=== PATIENT | female | born 1935 | race Caucasian/White ===

== ENCOUNTER 2017-02-13 13:14 | Inpatient (IN) ==
[2017-02-13] MEDS ORDERED: Ondansetron 4 MG/2 ML VIAL IVP ONE (14:03)
[2017-02-13] MEDS ORDERED: *HR* Morphine 2 MG/ML SYRINGE IVP ONE (14:03)
[2017-02-13] MEDS ORDERED: Methylnaltrexone 12 MG/0.6 ML SYRINGE SQ ONE (14:07)
--- NOTE | 2017-02-13 14:07 | Emergency Department Note ---
Disposition Clinical Impression: Inability to ambulate due to hip Anemia Qualifiers: Anemia type: unspecified type Qualified Code(s): D64.9 - Anemia, unspecified Hip fracture Qualifiers: Encounter type: subsequent encounter Fracture type: closed Laterality: right Fracture healing: with routine healing Qualified Code(s): S72.001D - Fracture of unspecified part of neck of right femur, subsequent encounter for closed fracture with routine healing Disposition: Admitted As Inpatient Condition: Good Time of Disposition: 15:08 General Adult HPI - General Chief complaint: ED Extremity Injury, Lower Stated complaint: HIP/KNEE PAIN Time Seen by Provider: 02/13/17 13:42 Source: patient Mode of arrival: wheelchair Limitations: no limitations Nursing Notes Reviewed: Yes Vital Signs Reviewed: Yes - History of Present Illness HPI Narrative: 81-year-old female presenting to the emergency Department chief complaint of intractable pain and inability to ambulate. Patient was seen at this hospital yesterday and diagnosed with a greater trochanter fracture on the right side. This is a nonsurgical fracture at this time. Orthopedics has RD then consulted on this case. Patient states she has been home using the Vicodin as prescribed but is in so much pain she is unable to walk to the bathroom or perform her daily activities of life. Family is at bedside and states she has had difficulty ambulating and they are staying with her at this time but are unable to care for her 22/11. Pain Scale: 10 - Related Data Home Medications Medication Instructions Recorded Confirmed Aspirin [Lo-Dose Aspirin EC] 81 mg PO DAILY 02/13/17 02/13/17 Brimonidine Tartrate/Timolol 1 drop BOTH EYES BID 02/13/17 02/13/17 [Combigan 0.2%-0.5% Eye Drops] Cyclosporine [Restasis] 1 drop BOTH EYES BID 02/13/17 02/13/17 Insulin Glargine,Hum.rec.anlog 21 unit SQ HS 02/13/17 02/13/17 [Lantus Solostar] Insulin LISPRO [Humalog] 4 unit SQ TIDWM 02/13/17 02/13/17 predniSONE [PredniSONE] 20 mg PO DAILY 02/13/17 02/13/17 Previous Rx's Medication Instructions Recorded HYDROcodone/Acet 5/325 mg [[place] 1 tab PO Q6H PRN #12 tab 02/12/17 5-325 mg] Allergies Allergy/AdvReac Type Severity Reaction Status Date / Time Sulfa (Sulfonamide AdvReac Gastrointestinal Verified 02/12/17 10:47 Antibiotics) Upset All systems ED: reviewed and negative except as stated. Constitutional: Denies: fever, chills Eyes: Reports: as per HPI ENT ED: Reports: as per HPI Cardiovascular: Denies: chest pain, palpitations Respiratory: Denies: cough, dyspnea, wheezes Gastrointestinal: Reports: constipation. Denies: abdominal pain, nausea, vomiting Genitourinary: Reports: as per HPI Musculoskeletal: Reports: other (Right hip pain radiating down to her knee) Integumentary: Reports: as per HPI Neurological: Reports: as per HPI Psychiatric: Reports: as per HPI Endocrine: Reports: as per HPI Hematological/Lymphatic: Reports: as per HPI Allergic/Immunologic: Reports: as per HPI Past Medical History - Past Medical History Attestation: Yes The following information was validated with the patient. Medical history: Reports: diabetes, hyperlipidemia, hypertension Psychiatric history: Reports: anxiety, depression - Social History Smoking Status: Never smoker Smokeless Tobacco Status: No Alcohol use: Reports: none Drug use: Reports: none Physical Exam - General Limitations: no limitations General appearance: alert, in distress (Patient uncomfortable on the bed) - Head Head exam: atraumatic, normocephalic, normal inspection - Eye Eye exam: Present: normal appearance - Chest Chest inspection: Present: normal inspection, symmetric chest wall rise. Absent : tenderness - Respiratory Respiratory exam: Present: normal lung sounds bilaterally. Absent: respiratory distress, wheezes - Cardiovascular Cardiovascular exam: Present: regular rate, normal rhythm, normal heart sounds - Abdominal Exam Abdominal exam: Present: soft, Non-Tender. Absent: distention, guarding, rebound - Extremities Exam Extremities exam: Present: other (Sensation intact bilateral lower extremities, distal pulses 2+ in bilateral lower extremities. Muscle strength is decreased due to pain on the right lower extremity compared to the left. Pain on palpation on the left outer hip area down to the knee. Pain on palpation of bilateral anterior tibial region) - Neurological Exam Neurological exam: Present: alert - Psychiatric Psychiatric exam: Present: normal affect, normal mood - Skin Skin exam: Present: warm, intact Course Course Narrative: 81-year-old female presenting to the emergency department with chief complaint inability to ambulate and intractable pain. We will plan to admit the patient at this time. We will call orthopedic surgery to determine who we should admit to either hospitalist and orthopedic surgery. We will provide pain management here in the emergency department and obtain basic lab work including CBC and BMP along with a urinalysis. - Reevaluation(s) Reevaluation #1: Spoke with Dr. boswell in the patient's known orthopedic surgeon. He agrees to see the patient while she stays in the hospital. We will now call hospitalist to get her admitted. Time: 14:07 Reevaluation #2: Spoke with the hospitalist team at [facility] who agrees to accept the patient. Patient became mildly under control at this time. We will provide her with 0.5 of Dilaudid. Vital signs are stable at this time. family still at bedside. Time: 15:07 Vital Signs Temperature 98.2 F 02/13/17 13:27 Pulse Rate 74 02/13/17 13:27 Respiratory Rate 24 02/13/17 13:27 Blood Pressure 151/34 02/13/17 13:27 O2 Sat by Pulse Oximetry 96 02/13/17 13:27 Temperature 98.2 F 02/13/17 13:27 Pulse Rate 74 02/13/17 13:27 Respiratory Rate 24 02/13/17 13:27 Blood Pressure 151/34 02/13/17 13:27 O2 Sat by Pulse Oximetry 96 02/13/17 13:27 Oxygen Delivery Oxygen Delivery Room Air Medical Decision Making - Medical Records Medical records reviewed: Yes I reviewed the patient's medical records. - Lab Data Lab results reviewed: Yes I reviewed the patient's lab results. Result diagrams: 02/13/17 14:18 02/13/17 14:18 Lab Results 02/13/17 02/13/17 02/13/17 Range/Units 14:18 14:18 14:50 WBC 11.3 H (4.3-11.1) K/mcL RBC 3.73 L (3.82-4.97) M/mcL Hgb 11.4 L (11.5-15.4) g/dL Hct 33.1 L (35.3-44.9) % MCV 88.7 (83.0-100.0) fL MCH 30.6 (28.0-33.3) pg MCHC 34.4 (31.6-35.5) g/dL RDW 12.0 (11.5-14.5) % Plt Count 258 (140-400) K/mcL MPV 10.4 (9.4-12.4) fL Immature Gran % 0.4 (0-4) % Seg Neutrophils % 60.0 % Lymphocytes % 22.1 % Monocytes % 16.5 % Eosinophils % 0.9 % Basophils % 0.1 % Neutrophils # 6.7 (1.6-8.9) K/mcL Lymphocytes # 2.5 (0.6-4.6) K/mcL Monocytes # 1.9 H (0.0-1.3) K/mcL Eosinophils # 0.1 (0.0-0.6) K/mcL Basophils # 0.0 (0.0-0.2) K/mcL Immature Plt Fraction 5.3 (1.1-6.1) % Sodium 133 L (136-145) mEq/L Potassium 3.9 (3.5-4.5) mEq/L Chloride 98 (98-109) mEq/L Carbon Dioxide 27 (19-29) mEq/L BUN 19 (7-20) mg/dL Creatinine 1.03 (0.57-1.11) mg/dL Est GFR ( Amer) > 60 (> 60) Est GFR (Non-Af Amer) 52 L (> 60) BUN/Creatinine Ratio 18 (6-26) Glucose 329 H (70-99) mg/dL Calculated Osmolality 291 (280-300) Calcium 9.2 (8.6-10.8) mg/dL Urine Color Yellow (Yellow) Urine Clarity Clear (Clear) Urine pH 6.0 (5.0-8.0) pH Units Ur Specific [place] 1.018 (1.010-1.025) Urine Protein Trace (Neg-Trace) mg/dL Urine Glucose (UA) >=1000 H (Normal) mg/dL Urine Ketones Negative (Negative) mg/dL Urine Blood Negative (Negative) Urine Nitrite Negative (Negative) Urine Bilirubin Negative (Negative) Urine Urobilinogen Normal (Normal) mg/dL Ur Leukocyte Esterase Negative (Negative) Urine Microscopic RBC 0-3 (0-3) per hpf Urine Microscopic WBC 0-3 (0-3) per hpf Ur Squamous Epith Cells Few (None-Few) per lpf Ur Culture Indicated? NO (NO) - Radiology Data Radiology results reviewed: Yes I reviewed the patient's radiology results. Attestation Statement - Attestation Attestation: I examined this patient and my medical decision-making was reviewed with the Resident Physician, Dr. Gamez. I agree with the documented findings, disposition and treatment plan as described except to the extent set forth below. Patient is a 81-year-old white female who returns to the emergency department after evaluation yesterday for right greater trochanter fracture that was deemed nonsurgical following orthopedic consult in the ED. Patient is status post right hip arthroplasty and sustained a small fracture line in her reader rate choke on the right that was identified on CT scan not apparent on plain films. He was recommended by Dr. Gooden orthopedic surgeon that the patient be discharged home and ambulation as tolerated secondary to pain and managed on narcotic pain medicine. Patient was prescribed [place] for home which she states is not managing her pain. Patient arrives quite uncomfortable and states that she is unable to ambulate with her walker at home and is unable to care for herself or perform her activities of daily living. Family members have been staying 24 7 assisting her with care. Patient denies any falls since her prior ED evaluation. No nausea or vomiting or trouble tolerating the medication. Patient here with intractable right hip pain. I agree with patient's physical exam findings as documented. Vital signs are stable. He has no new issues today has not fallen no history of trauma since her prior evaluation in the ED. Family brought her here primarily for intractable right hip pain and difficulty managing at home. We will go ahead and start an IV and provide IV pain medication for pain management as well as baseline labs and urinalysis. We did contact Dr. Marcus and discuss the patient's requiring admission for her intractable pain and inability to ambulate and he will consult on the patient and see her tomorrow. He was consulate from the emergency department. Following patient's baseline lab evaluation case was discussed with hospitalist who accepted the patient for admission for ongoing management as well as social worker consult for possible temporary ECF placement.
[2017-02-13 14:24] LABS: Basophils % 0.1 %; Eosinophils # 0.1 K/mcL (0.0-0.6); Eosinophils % 0.9 %; Hematocrit 33.1 % (35.3-44.9); Hemoglobin 11.4 g/dL (11.5-15.4); Immature Granulocytes % 0.4 % (0-4); Immature Platelets 5.3 % (1.1-6.1); Lymphocytes # 2.5 K/mcL (0.6-4.6); Lymphocytes % 22.1 %; Mean Corpuscular HGB Conc 34.4 g/dL (31.6-35.5); Mean Corpuscular Hemoglobin 30.6 pg (28.0-33.3); Mean Corpuscular Volume 88.7 fL (83.0-100.0); Mean Platelet Volume 10.4 fL (9.4-12.4); Monocytes # 1.9 K/mcL (0.0-1.3); Monocytes % 16.5 %; Neutrophils # 6.7 K/mcL (1.6-8.9); Platelet Count 258 K/mcL (140-400); Red Blood Count 3.73 M/mcL (3.82-4.97)
[2017-02-13 14:36] LABS: BUN/Creatinine Ratio 18 (6-26); Blood Urea Nitrogen 19 mg/dL (7-20); Calcium 9.2 mg/dL (8.6-10.8); Carbon Dioxide 27 mEq/L (19-29); Chloride 98 mEq/L (98-109); Glucose 329 mg/dL (70-99); Osmolality,Calculated 291 (280-300); Potassium 3.9 mEq/L (3.5-4.5); Sodium 133 mEq/L (136-145); eGFR For African Americans > 60 (> 60); eGFR For Non-African Americans 52 (> 60)
[2017-02-13] MEDS ORDERED: *HR* HYDROmorphone (PF) 1 MG/ML SYRINGE IVP ONE (14:52)
[2017-02-13 15:10] LABS: Bilirubin,Urine Negative (Negative); Blood,Urine Negative (Negative); Clarity,Urine Clear (Clear); Color,Urine Yellow (Yellow); Glucose,Urine (UA) >=1000 mg/dL (Normal); Ketones,Urine Negative (Negative); Leukocyte Esterase,Urine Negative (Negative); Nitrite,Urine Negative (Negative); Protein,Urine Trace mg/dL (Neg-Trace); Specific Gravity,Urine 1.018 (1.010-1.025); Urobilinogen,Urine Normal (Normal)
[2017-02-13 15:14] LABS: RBC,Urine 0-3 per hpf (0-3); WBC,Urine 0-3 per hpf (0-3)
[2017-02-13 15:15] LABS: Squamous Epithelial Cell,Urine Few per lpf (None-Few)
[2017-02-13] MEDS ORDERED: Ondansetron 4 MG/2 ML VIAL IVP PRN (15:54)
[2017-02-13] MEDS ORDERED: Naloxone 0.4 MG/ML INJ IVP PRN (15:54)
[2017-02-13] MEDS ORDERED: *HR* Morphine 2 MG/ML SYRINGE IVP PRN (15:59)
[2017-02-13] MEDS ORDERED: Acetaminophen 325 MG TABLET PO PRN (15:59)
[2017-02-13] MEDS ORDERED: *HR* Dextrose 50 % in Water (Syg) 50 ML SYRINGE IVP PRN (16:02)
[2017-02-13] MEDS ORDERED: D5% in Water 1,000 ML IVC PRN (16:02)
[2017-02-13] MEDS ORDERED: Dextrose Gel 15 GM PO PRN ×2 (16:02)
--- NOTE | 2017-02-13 17:21 | Internal Med History&Physical ---
<Tonia Kaur - Last Filed: 02/13/17 19:25> Date of Encounter: 02/13/17 Time of Encounter: 16:54 Assessment and Plan (1) Intractable pain Current visit: Yes Status: Acute Patient has right greater trochanter fracture nonsurgical-unable to complete ADLs or ambulate. We will continue with Vicodin as well as morphine as needed for breakthrough pain. We will add lidocaine patch Due to the use of narcotics patient's high risk for respiratory failure - continuous SPO2 monitoring (2) Fracture of greater trochanter of right femur Current visit: Yes Status: Acute 1 she was seen yesterday in the ER for right hip pain CT of pelvis right sided nondisplaced greater trochanter [id number] has had previous arthroplasty to the right hip. Dr. Marcus has been consulted and will see patient 2 we will consult PT and OT 3 continue with pain management-Vicodin as well as morphine increase as needed Qualifiers: Encounter type: initial encounter Fracture type: closed Fracture alignment: nondisplaced Qualified Code(s): S72.114A - Nondisplaced fracture of greater trochanter of right femur, initial encounter for closed fracture (3) Hypertension Current visit: No Status: Acute Patient states she has not officially been diagnosed with hypertension and solitary any medications. Suspect this is related to pain. We will continue with pain management Qualifiers: Hypertension type: unspecified Qualified Code(s): I10 - Essential (primary ) hypertension (4) DVT prophylaxis Current visit: Yes Status: Acute Lovenox subcutaneous (5) Diabetes mellitus Current visit: No Status: Chronic 1 Accu-Cheks before meals at bedtime + scale insulin as well as basal Diabetic diet Qualifiers: Diabetes mellitus type: type 2 Diabetes mellitus complication status: without complication Diabetes mellitus bed bug exterminator insulin use: with bed bug exterminator use Qualified Code(s): E11.9 - Type 2 diabetes mellitus without complications ; Z79.4 - longterm (current) use of insulin; Z79.4 - longterm (current) use of insulin; Z79.4 - longterm (current) use of insulin; Z79.4 - longterm ( current) use of insulin Internal Medicine - H&P: HPI Chief complaint: r hip pain Admitted From: Emergency Dept Plans for Post Hospital Care: Home History of present illness: Ms. Muniz is a 81 year old female past medical history of diabetes hyperlipidemia hypertension. Patient was seen at hospital yesterday and was diagnosed with a right greater trochanter fracture, nonsurgical at this time. She has been at home using Vicodin as prescribed however this was not controlling her pain and she has been unable to ambulate and perform daily ADLs or go to the bathroom, despite family providing 24-hour care as well. She presented to the ER with intractable pain. ER did speak with Dr. Marcus who will see patient on consult. Lab work is unremarkable she is hemodynamically stable and has been admitted for further workup and evaluation. Past Med Surg Social Fam HX - Past Medical History Medical history: diabetes, hyperlipidemia, hypertension Psychiatric history: anxiety, depression - Social History Smoking Status: Never smoker Smokeless Tobacco Status: No Alcohol use: none Drug use: none - Family History Mother Living Status: Hx Family Endocrine Disorder: Yes (DM ) Father Adopted: [place]: [place] Family Member Ethnicity: Non- Living Status: Age at : 70 Cause of : emphysema Hx Family Cardiac Disorders: No Hx Family Respiratory Disorders: Yes (emphysema) Hx Family Cancer: No Hx Family GI Disorders: No Hx Family Genitourinary Disorders: No Hx Family Endocrine Disorder: No Hx Family Musculoskeletal Disorders: No Hx Family Neuromuscular Disorders: No Hx Family Neurologic Disorders: No Hx Family HEENT Disorders: No Hx Family Autoimmune Disorders: No Hx Family Reproductive Disorders: No Hx Family Psychosocial Disorders: No Hx Family Medical Disorders: No Internal Medicine - H&P: Meds HYDROcodone/Acet 5/325 mg [[place] 5-325 mg] 1 tab PO Q6H PRN #12 tab 02/12/17 [Rx ] Aspirin [Lo-Dose Aspirin EC] 81 mg PO DAILY 02/13/17 [History] Brimonidine Tartrate/Timolol [Combigan 0.2%-0.5% Eye Drops] 1 drop BOTH EYES BID 02/13/17 [History] Cyclosporine [Restasis] 1 drop BOTH EYES BID 02/13/17 [History] Insulin Glargine,Hum.rec.anlog [Lantus Solostar] 21 unit SQ HS 02/13/17 [History ] Insulin LISPRO [Humalog] 4 unit SQ TIDWM 02/13/17 [History] predniSONE [PredniSONE] 20 mg PO DAILY 02/13/17 [History] 3 Allergy/AdvReac Type Severity Reaction Status Date / Time Sulfa (Sulfonamide AdvReac Gastrointestinal Verified 02/12/17 10:47 Antibiotics) Upset All Systems PM: A 10-system review of systems was performed and is negative for pertinent findings except as documented above in the HPI. - Constitutional Constitutional: weakness, no chills, no fever(s), no night sweats - EENT Eyes: no change in vision, no discharge, no pain, no photophobia Nose, mouth and throat: no dysphagia, no nasal discharge, no neck pain, no sore throat - Cardiovascular Cardiovascular ROS IM: no chest pain, no diaphoresis, no dyspnea, no lightheadedness, no palpitations, no syncope - Respiratory Respiratory: no cough, no dyspnea, no wheezing, no excessive phlegm production - Gastrointestinal Gastrointestinal: no abdominal pain, no diarrhea, no hematemesis, no hematochezia, no melena, no nausea, no vomiting - Genitourinary Genitourinary: no change in urinary stream, no dysuria, no flank pain, no hematuria - Musculoskeletal Musculoskeletal ROS IM: limited range of motion, other Additional comments: R hip pain - Integumentary Integumentary IM: no rash, no unusual bruising - Neurological Neurological ROS: no confusion, no convulsions, no focal weakness, no numbness, no tingling, no tremor(s) - Hematologic/Lymphatic Hematologic/Lymphatic: no easy bruising - Constitutional Vitals: Temp Pulse Resp BP Pulse Ox 98.1 F 74 19 194/79 97 02/13/17 16:39 02/13/17 16:39 02/13/17 16:39 02/13/17 16:39 02/13/17 16:39 General appearance: Present: A&O X 3, answers questions appropriately - Head Head exam: Present: atraumatic, normocephalic - Eye Eye exam: Present: PERRL, conjuntiva pink, sclera anicteric Pupils: Present: PERRL - Neck Neck exam general surgery: Present: supple, trachea midline. Absent: lymphadenopathy - Respiratory Respiratory exam: Present: CTAB. Absent: accessory muscle use, rales, rhonchi, wheezes - Cardiovascular Cardiovascular exam: Present: RRR, +S1, +S2. Absent: diastolic murmur, gallop, rubs, systolic murmur - GI/Abdominal GI/Abdominal exam: Present: normal bowel sounds, soft, no peritoneal signs. Absent: distended, tenderness - Extremities Exam Extremities exam: Present: warm, radial pulses palpable and symmetrical. Absent : calf tenderness, cyanotic, pedal edema - Neurological Exam Neurological exam: Present: CN II-XII intact, oriented X3, no focal deficits. Absent: pronater drift, facial droop, speech deficit Additional comments: head tremor - Skin Skin exam: Present: dry, intact Internal Med - H&P Results - Labs CBC & Chem 7: 02/13/17 14:18 02/13/17 14:18 <Hossein Escobar - Last Filed: 02/14/17 01:20> Date of Encounter: 02/13/17 Internal Medicine - H&P: HPI History of present illness: Ms. Muniz is a 81 year old female All Systems PM: A 10-system review of systems was performed and is negative for pertinent findings except as documented above in the HPI. - Constitutional Vitals: Temp Pulse Resp BP Pulse Ox 98.5 F 73 17 146/68 97 02/13/17 23:23 02/13/17 23:23 02/13/17 23:23 02/13/17 23:23 02/13/17 23:23 Internal Med - H&P Results - Labs CBC & Chem 7: 02/13/17 14:18 02/13/17 14:18 - Attending Attestation I have seen and examined the patient personally and discussed the plan with LICENSING WORKER and agree with the findings. Patient fell backwards after losing her balance and sustained right hip pain for which she seek medical attention locally and was told to take steroids and some muscle relaxant. As she was unable to bear weight and family brought her back to the ER where CT pelvis showed right greater trochanter fracture with mildly displaced segment. ER consulted orthopedic who has recommended conservative management. We have consulted orthopedics to see the patient and will keep the patient in hospital for pain management. The daily can be arranged. She might need chcf.
[2017-02-13] MEDS: Insulin LISPRO 300 UNITS/3 ML VIAL SQ SCH ×2 (17:50→22:29)
[2017-02-13] MEDS: *HR* HYDROcodone/Acet 5/325 mg TABLET PO PRN (17:58)
[2017-02-13] MEDS: RESTASIS OP SCH (22:29)
[2017-02-13] MEDS: Insulin DETEMIR 100 UNIT/ML X5UNITS SQ SCH (22:29)
[2017-02-13] MEDS: COMBIGAN OP SCH (22:29)
[2017-02-13] MEDS: *HR* HYDROmorphone (PF) 1 MG/ML SYRINGE IVP PRN (22:30)
[2017-02-14] MEDS: *HR* HYDROcodone/Acet 5/325 mg TABLET PO PRN ×4 (01:31→22:57)
[2017-02-14 01:32] LABS: Basophils % 0.2 %; Eosinophils # 0.2 K/mcL (0.0-0.6); Eosinophils % 1.6 %; Hematocrit 34.9 % (35.3-44.9); Hemoglobin 11.6 g/dL (11.5-15.4); Immature Granulocytes % 0.2 % (0-4); Lymphocytes # 4.1 K/mcL (0.6-4.6); Lymphocytes % 33.7 %; Mean Corpuscular HGB Conc 33.2 g/dL (31.6-35.5); Mean Corpuscular Volume 90.2 fL (83.0-100.0); Mean Platelet Volume 10.5 fL (9.4-12.4); Monocytes # 1.9 K/mcL (0.0-1.3); Monocytes % 15.9 %; Neutrophils # 5.8 K/mcL (1.6-8.9); Platelet Count 242 K/mcL (140-400); Red Blood Count 3.87 M/mcL (3.82-4.97); Red Cell Distribution Width 12.3 % (11.5-14.5); Segmented Neutrophils % 48.4 %
[2017-02-14 01:39] LABS: BUN/Creatinine Ratio 16 (6-26); Blood Urea Nitrogen 16 mg/dL (7-20); Calcium 9.2 mg/dL (8.6-10.8); Carbon Dioxide 28 mEq/L (19-29); Chloride 102 mEq/L (98-109); Glucose 160 mg/dL (70-99); Osmolality,Calculated 289 (280-300); Potassium 4.7 mEq/L (3.5-4.5); Sodium 137 mEq/L (136-145); eGFR For African Americans > 60 (> 60); eGFR For Non-African Americans 55 (> 60)
[2017-02-14] MEDS: *HR* HYDROmorphone (PF) 1 MG/ML SYRINGE IVP PRN ×4 (02:36→18:30)
--- NOTE | 2017-02-14 07:51 | Orthopedic Consult Note ---
Date of Encounter: 02/14/17 Time of Encounter: 08:28 Assessment and Plan (1) History of total right hip replacement Current Visit: Yes Status: Chronic (2) Fracture of greater trochanter of right femur Current Visit: Yes Status: Acute Case reviewed with Dr. Marcus. Nonoperative greater trochanter fracture not involving prosthesis of the right hip. Patient education and reassurance provided. Patient to protective weight bearing. Patient to continue pain medication per hospitalist. Hydroxyzine added at conservative dosing to help with itching. OT/PT with protective weight bearing. Patient may need rehab - per hospitalist direction. Patient to follow up with [facility] sports medicine in 2 weeks. Qualifiers: Encounter type: initial encounter Fracture type: closed Fracture alignment: nondisplaced Qualified Code(s): S72.114A - Nondisplaced fracture of greater trochanter of right femur, initial encounter for closed fracture (3) Inability to ambulate due to hip Current Visit: Yes Status: Acute (4) Intractable pain Current Visit: Yes Status: Acute History of Present Illness Chief complaint: right hip pain HPI: Ms. Muniz is a 81 year old female presented to [place] ED on 02/12/17 from home for intractable pain and difficulty walking. Patient fell on 02/06/17 per telephone records in [facility] revealing that patient's daughter contacted [facility] via telephone to report fall and ask for advice re: pain. It was recommended patient present to [facility] for evaluation. Daughter convened with patient and then proceeded to [facility] ED on 02/10/17. Patient had negative xrays and was sent home. Patient continued to have pain and thus presented to [place] ED on 02/12/17 and had repeat xrays which were again negative for fracture. Patient then continued to have worsening pain and difficulty walking and thus presented again to [place] ED 02/13/[address] pelvis was performed revealing fracture. Patient is s/p right THR by Dr. Marcus 09/05/13. She complains of itching as pain medication has been administered at increasing doses. Patient seen and examined at bedside. No family present. Patient is writhing in pain stating that her hip is very uncomfortable. On exam patient has full mobility of bilateral lower extremities. No skin disruption, erythema, ecchymosis, or petechiae noted. Patient is neurovascularly intact. She is alert and oriented x 3. Diagnostic imaging: HISTORY: ORDERING SYSTEM PROVIDED HISTORY: hip pain, inability to ambulate Right hip pain for 3 days. Initial evaluation. FINDINGS: Right hip arthroplasty. A nondisplaced fracture involves the right femoral greater trochanter. A small mildly displaced fracture fragment is present at the posterior aspect of the greater trochanter. No definite fracture extension to the level of the right femoral prosthesis is demonstrated, although evaluation is somewhat limited by streak artifact. The lesser trochanter appears intact. There is no evidence of acute right acetabular fracture. The left femoral head is normal in contour and alignment. 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 The pubic symphysis and sacroiliac joints are intact. No acute abnormality in the pelvis. CT/CT pelvis wo no iv no oral IMPRESSION: Acute traumatic fracture of the right femoral greater trochanter, including a mildly displaced fracture fragment. D/ / Eliseo Heller MD / Eliseo Heller MD Interpreting Provider: Eliseo Heller MD Case reviewed with Dr. Marcus. Nonoperative greater trochanter fracture not involving prosthesis of the right hip. Patient education and reassurance provided. Patient to protective weight bearing. Patient to continue pain medication per hospitalist. Hydroxyzine added at conservative dosing to help with itching. OT/PT with protective weight bearing. Patient may need rehab - per hospitalist direction. Patient to follow up with [facility] sports medicine in 2 weeks. Thank you for this consultation. Past Med Surg Social Fam HX - Past Medical History Medical history: diabetes, hyperlipidemia, hypertension Psychiatric history: anxiety, depression - Past Surgical History Surgical History: hysterectomy - Social History Smoking Status: Never smoker Smokeless Tobacco Status: No Alcohol use: none Drug use: none - Family History Mother Adopted: [place]: Abbie Vargas Family Member Ethnicity: Non- Living Status: Age at : 65 Cause of : Heart Failure Hx Family Cardiac Disorders: Yes Hx Family Respiratory Disorders: No Hx Family Cancer: No Hx Family GI Disorders: No Hx Family Genitourinary Disorders: No Hx Family Endocrine Disorder: Yes (DM ) Hx Family Musculoskeletal Disorders: No Hx Family Neuromuscular Disorders: No Hx Family Neurologic Disorders: No Hx Family HEENT Disorders: No Hx Family Autoimmune Disorders: No Hx Family Reproductive Disorders: No Hx Family Psychosocial Disorders: No Hx Family Medical Disorders: No Father Adopted: [place]: Fread Family Member Ethnicity: Non- Living Status: Age at : 70 Cause of : emphysema Hx Family Cardiac Disorders: No Hx Family Respiratory Disorders: Yes (emphysema) Hx Family Cancer: No Hx Family GI Disorders: No Hx Family Genitourinary Disorders: No Hx Family Endocrine Disorder: No Hx Family Musculoskeletal Disorders: No Hx Family Neuromuscular Disorders: No Hx Family Neurologic Disorders: No Hx Family HEENT Disorders: No Hx Family Autoimmune Disorders: No Hx Family Reproductive Disorders: No Hx Family Psychosocial Disorders: No Hx Family Medical Disorders: No Medications and Allergies HYDROcodone/Acet 5/325 mg [[place] 5-325 mg] 1 tab PO Q6H PRN #12 tab 02/12/17 [Rx ] Aspirin [Lo-Dose Aspirin EC] 81 mg PO DAILY 02/13/17 [History] Brimonidine Tartrate/Timolol [Combigan 0.2%-0.5% Eye Drops] 1 drop BOTH EYES BID 02/13/17 [History] Cyclosporine [Restasis] 1 drop BOTH EYES BID 02/13/17 [History] Insulin Glargine,Hum.rec.anlog [Lantus Solostar] 21 unit SQ HS 02/13/17 [History ] Insulin LISPRO [Humalog] 4 unit SQ TIDWM 02/13/17 [History] predniSONE [PredniSONE] 20 mg PO DAILY 02/13/17 [History] 3 Allergy/AdvReac Type Severity Reaction Status Date / Time Sulfa (Sulfonamide AdvReac Gastrointestinal Verified 02/12/17 10:47 Antibiotics) Upset All Systems Reviewed: A 10-system review of systems was performed and is negative for pertinent findings except as documented above in the HPI. Physical Exam - Constitutional Vitals: Temp Pulse Resp BP Pulse Ox 98.7 F 81 16 144/76 96 02/14/17 06:30 02/14/17 06:30 02/14/17 06:30 02/14/17 06:30 02/14/17 06:30 Results - Labs Result Diagrams: 02/14/17 01:04 02/14/17 01:04 Labs: Abnormal lab results WBC 12.0 K/mcL (4.3-11.1) H 02/14/17 01:04 Hct 34.9 % (35.3-44.9) L 02/14/17 01:04 Monocytes # 1.9 K/mcL (0.0-1.3) H 02/14/17 01:04 Potassium 4.7 mEq/L (3.5-4.5) H 02/14/17 01:04 Est GFR (Non-Af Amer) 55 (> 60) L 02/14/17 01:04 Glucose 160 mg/dL (70-99) H 02/14/17 01:04 POC Glucose 136 (58-89) H 02/13/17 19:36 Urine Glucose (UA) >=1000 mg/dL (Normal) H 02/13/17 14:50 H & H 02/14/17 Range/Units 01:04 Hgb 11.6 (11.5-15.4) g/dL Hct 34.9 L (35.3-44.9) % All other labs normal. Consult Discharge Plan - Plan Referrals: Desean Levi MD [Primary Care Provider] - Arlene Whitley DO [Family Provider] -
[2017-02-14] MEDS: *HR* Enoxaparin 40 MG/0.4 ML SYRINGE SQ SCH (08:19)
[2017-02-14] MEDS: COMBIGAN OP SCH ×2 (08:20→21:44)
[2017-02-14] MEDS: Insulin LISPRO 300 UNITS/3 ML VIAL SQ SCH ×4 (08:20→21:44)
[2017-02-14] MEDS: Aspirin Enteric Coated 81 MG Tablet PO SCH (08:20)
[2017-02-14] MEDS: RESTASIS OP SCH ×3 (08:21→21:44)
[2017-02-14] MEDS ORDERED: predniSONE 20 MG TABLET PO SCH (09:00)
--- NOTE | 2017-02-14 14:42 | Internal Med Progress Note ---
Date of Encounter: 02/14/17 Time of Encounter: 14:42 - Assessment and plan (1) Fracture of greater trochanter of right femur Current Visit: Yes Status: Acute Assessment and plan: Surgery consultation appreciated no acute surgical intervention recommended PT/OT pain control supportive care likely d/c to SNF Qualifiers: Encounter type: initial encounter Fracture type: closed Fracture alignment: nondisplaced Qualified Code(s): S72.114A - Nondisplaced fracture of greater trochanter of right femur, initial encounter for closed fracture (2) Hypertension Current Visit: No Status: Acute Assessment and plan: noted to be hypertensive after argument with daughter will closely monitor added Hydralazine 10mg IV q6h prn SBP>160 Qualifiers: Hypertension type: essential hypertension Qualified Code(s): I10 - Essential (primary) hypertension (3) Inability to ambulate due to hip Current Visit: Yes Status: Acute Assessment and plan: due to hip fracture PT/OT pain control (4) Intractable pain Current Visit: Yes Status: Acute Assessment and plan: due to hip fracture (5) DVT prophylaxis Current Visit: Yes Status: Acute Assessment and plan: Lovenox SQ (6) Diabetes mellitus Current Visit: No Status: Chronic Assessment and plan: continue home dose of insulin sliding scale insulin algorithm as needed monitor FS and BG ADA diet Qualifiers: Diabetes mellitus type: type 2 Diabetes mellitus complication status: without complication Diabetes mellitus [facility] insulin use: with [facility] use Qualified Code(s): E11.9 - Type 2 diabetes mellitus without complications ; Z79.4 - group home (current) use of insulin; Z79.4 - group home (current) use of insulin; Z79.4 - group home (current) use of insulin; 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 Reports of the pain being appropriately controlled with pain medications. awaiting physical therapy evaluation Pt was found to be upset with some issues with the daughter due to which she was found to have elevated BP. Will closely monitor, if remains elevated, will give hydralazine 10mg IV prn SBP>160 - Constitutional Vitals: Temp Pulse Resp BP Pulse Ox 98.3 F 76 18 149/83 95 02/14/17 09:48 02/14/17 09:48 02/14/17 09:48 02/14/17 09:48 02/14/17 09:48 General appearance: Present: A&O X 3, no acute distress, underweight, answers questions appropriately - Head Head exam: Present: atraumatic, normocephalic - Respiratory Respiratory exam: Present: CTAB. Absent: accessory muscle use, rales, rhonchi, wheezes - Cardiovascular Cardiovascular exam: Present: RRR, +S1, +S2. Absent: diastolic murmur, gallop, rubs, systolic murmur - GI/Abdominal GI/Abdominal exam: Present: normal bowel sounds, soft, no peritoneal signs. Absent: distended, tenderness - Extremities Exam Extremities exam: Present: warm, radial pulses palpable and symmetrical. Absent : calf tenderness, cyanotic, pedal edema - Neurological Exam Neurological exam: Present: alert, oriented X3 Internal Medicine: Result - Labs CBC & Chem 7: 02/14/17 01:04 02/14/17 01:04 Labs: Short CBC 02/14/17 Range/Units 01:04 WBC 12.0 H (4.3-11.1) K/mcL Hgb 11.6 (11.5-15.4) g/dL Hct 34.9 L (35.3-44.9) % Plt Count 242 (140-400) K/mcL Neutrophils # 5.8 (1.6-8.9) K/mcL BMP 02/14/17 01:04 Sodium 137 Potassium 4.7 H Chloride 102 Carbon Dioxide 28 BUN 16 Creatinine 0.98 Glucose 160 H Calcium 9.2 Consult Discharge Plan - Plan Referrals: Desean Levi MD [Primary Care Provider] - Arlene Whitley DO [Family Provider] -
[2017-02-14] MEDS: Ketorolac 15 MG/ML VIAL IVP SCH (19:44)
[2017-02-14] MEDS: Insulin DETEMIR 100 UNIT/ML X5UNITS SQ SCH (21:44)
[2017-02-15] MEDS ORDERED: *HR* LORazepam 2 MG/ML VIAL IVP ONE (01:00)
[2017-02-15] MEDS: Ketorolac 15 MG/ML VIAL IVP SCH ×3 (01:12→11:43)
[2017-02-15 06:14] LABS: Basophils % 0.2 %; Eosinophils # 0.2 K/mcL (0.0-0.6); Eosinophils % 1.7 %; Hematocrit 37.6 % (35.3-44.9); Hemoglobin 12.6 g/dL (11.5-15.4); Immature Granulocytes % 0.2 % (0-4); Lymphocytes # 1.9 K/mcL (0.6-4.6); Mean Corpuscular HGB Conc 33.5 g/dL (31.6-35.5); Mean Corpuscular Hemoglobin 29.9 pg (28.0-33.3); Mean Corpuscular Volume 89.3 fL (83.0-100.0); Mean Platelet Volume 10.6 fL (9.4-12.4); Monocytes # 1.6 K/mcL (0.0-1.3); Monocytes % 16.6 %; Neutrophils # 5.7 K/mcL (1.6-8.9); Platelet Count 254 K/mcL (140-400); Red Blood Count 4.21 M/mcL (3.82-4.97); Red Cell Distribution Width 12.2 % (11.5-14.5); Segmented Neutrophils % 61.3 %
[2017-02-15 06:26] LABS: BUN/Creatinine Ratio 26 (6-26); Blood Urea Nitrogen 22 mg/dL (7-20); Calcium 9.3 mg/dL (8.6-10.8); Carbon Dioxide 28 mEq/L (19-29); Chloride 99 mEq/L (98-109); Glucose 174 mg/dL (70-99); Magnesium 1.8 mg/dL (1.6-2.6); Osmolality,Calculated 286 (280-300); Phosphorous 3.9 mg/dL (2.3-4.7); Sodium 134 mEq/L (136-145); eGFR For African Americans > 60 (> 60); eGFR For Non-African Americans > 60 (> 60)
[2017-02-15] MEDS: *HR* Enoxaparin 40 MG/0.4 ML SYRINGE SQ SCH (06:49)
[2017-02-15] MEDS: Insulin LISPRO 300 UNITS/3 ML VIAL SQ SCH ×4 (09:03→21:54)
[2017-02-15] MEDS: COMBIGAN OP SCH ×2 (09:06→21:33)
[2017-02-15] MEDS: RESTASIS OP SCH ×2 (09:07→21:33)
[2017-02-15] MEDS: Aspirin Enteric Coated 81 MG Tablet PO SCH ×2 (09:09→11:50)
--- NOTE | 2017-02-15 12:41 | Event Note ---
Date of Encounter: 02/15/17 Time of Encounter: 12:40 Patient very lethargic since Ativan given last night. Hospitalist aware. Discussed head CT due to stroke history, daughter declined. They are also trying to manage her BP at this time. Hospitalist in the room at the time of discussion. Nonoperative greater trochanter fracture not involving prosthesis of the right hip. Patient education and reassurance provided. Patient to protective weight bearing. Patient to continue pain medication per hospitalist. Hydroxyzine added at conservative dosing to help with itching. OT/PT with protective weight bearing. Patient may need rehab - per hospitalist direction. Patient to follow up with [facility] medicine in 2 weeks.
[2017-02-15] MEDS: amLODIPine 5 MG TABLET PO SCH (13:11)
--- NOTE | 2017-02-15 14:35 | Internal Med Progress Note ---
Date of Encounter: 02/15/17 Time of Encounter: 13:30 - Assessment and plan (1) Acute delirium Current Visit: Yes Status: Acute Assessment and plan: Mutli factorial -- could be due to pain + also concerned for dementia but daughter denies any signs dementia at home unable to assess now Daughter refused for CT of head now will cont close moniotring Feed her when she is fully awake d/c Dilaudid.. No more Ativan If she gets real agitates will use Haldol at low dose 0.25mg PO Q BID PRN (2) Hypertensive urgency Current Visit: Yes Status: Acute Assessment and plan: Due to pain Cont Pain meds also started on PO BP meds Norvasc and Metoprolol Cont IV hydralazine PRN (3) Fracture of greater trochanter of right femur Current Visit: Yes Status: Acute Assessment and plan: Ortho ob board Reviewed CT of Pelvis no acute surgical intervention recommended PT/OT pain control supportive care Qualifiers: Encounter type: initial encounter Fracture type: closed Fracture alignment: nondisplaced Qualified Code(s): S72.114A - Nondisplaced fracture of greater trochanter of right femur, initial encounter for closed fracture (4) Intractable pain Current Visit: Yes Status: Acute Assessment and plan: due to hip fracture (5) Diabetes mellitus Current Visit: No Status: Chronic Assessment and plan: continue home dose of insulin sliding scale insulin algorithm as needed monitor FS and BG ADA diet Qualifiers: Diabetes mellitus type: type 2 Diabetes mellitus complication status: without complication 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 Muniz is a 81 year old female past medical history of diabetes hyperlipidemia hypertension. Patient was seen at hospital yesterday and was diagnosed with a right greater trochanter fracture, nonsurgical at this time. She has been at home using Vicodin as prescribed however this was not controlling her pain and she has been unable to ambulate and perform daily ADLs or go to the bathroom, despite family providing 24-hour care as well. Pt was admitted here with intractable pain. She was more confused and agitated last night, received ativan 0.5mg IV x 1 dose last night.. Now she is semi sleepy and responding for verbal stimuli and following few commands. Denied any CP / SOB...Pt's daughter is at bed side. - Constitutional Vitals: Temp Pulse Resp BP Pulse Ox 98.8 F 94 22 170/73 98 02/15/17 10:54 02/15/17 13:10 02/15/17 10:54 02/15/17 13:10 02/15/17 13:10 General appearance: Present: A&O X 1, no acute distress (sleepy), underweight - Head Head exam: Present: atraumatic, normal inspection - Neck Neck exam general surgery: Present: supple - Respiratory Respiratory exam: Present: decreased breath sounds. Absent: accessory muscle use, rales, rhonchi, wheezes - Cardiovascular Cardiovascular exam: Present: RRR, +S1, +S2. Absent: diastolic murmur, gallop, rubs, systolic murmur - GI/Abdominal GI/Abdominal exam: Present: normal bowel sounds, soft. Absent: rebound, rigid, tenderness - Extremities Exam Extremities exam: Absent: calf tenderness, pedal edema, tenderness Additional comments: limited ROM Rt hip due to pain - Back Exam Back exam: Absent: CVA tenderness (L), CVA tenderness (R) - Neurological Exam Neurological exam: Present: alert (semi sleepy) Internal Medicine: Result - Labs CBC & Chem 7: 02/15/17 05:29 02/15/17 05:29 Labs: Short CBC 02/15/17 Range/Units 05:29 WBC 9.3 (4.3-11.1) K/mcL Hgb 12.6 (11.5-15.4) g/dL Hct 37.6 (35.3-44.9) % Plt Count 254 (140-400) K/mcL Neutrophils # 5.7 (1.6-8.9) K/mcL BMP 02/15/17 05:29 Sodium 134 L Potassium 4.0 Chloride 99 Carbon Dioxide 28 BUN 22 H Creatinine 0.84 Glucose 174 H Calcium 9.3 Consult Discharge Plan - Plan Referrals: Desean Levi MD [Primary Care Provider] - Arlene Whitley DO [Family Provider] -
[2017-02-15] MEDS: *HR* HYDROcodone/Acet 5/325 mg TABLET PO PRN ×2 (18:41→23:05)
[2017-02-15] MEDS ORDERED: Ketorolac 15 MG/ML VIAL IVP SCH (18:58)
[2017-02-15] MEDS: Insulin DETEMIR 100 UNIT/ML X5UNITS SQ SCH (21:53)
[2017-02-16] MEDS: *HR* HYDROcodone/Acet 5/325 mg TABLET PO PRN ×5 (04:22→23:58)
[2017-02-16 05:41] LABS: Bilirubin,Urine Negative (Negative); Blood,Urine Large (Negative); Clarity,Urine Turbid (Clear); Color,Urine Dark Yellow (Yellow); Glucose,Urine (UA) 100 mg/dL (Normal); Ketones,Urine Negative (Negative); Leukocyte Esterase,Urine Moderate (Negative); Nitrite,Urine Negative (Negative); Protein,Urine 100 mg/dL (Neg-Trace); Specific Gravity,Urine 1.028 (1.010-1.025); Urobilinogen,Urine Normal (Normal)
[2017-02-16 06:14] LABS: Bacteria,Urine Moderate per hpf (None-Few); RBC,Urine 30-50 per hpf (0-3); WBC,Urine 15-30 per hpf (0-3)
[2017-02-16 06:15] LABS: Squamous Epithelial Cell,Urine Few per lpf (None-Few)
[2017-02-16] MEDS: *HR* Enoxaparin 40 MG/0.4 ML SYRINGE SQ SCH (06:22)
[2017-02-16] MEDS: Insulin LISPRO 300 UNITS/3 ML VIAL SQ SCH ×4 (08:06→21:07)
[2017-02-16] MEDS: Aspirin Enteric Coated 81 MG Tablet PO SCH (08:39)
[2017-02-16] MEDS: amLODIPine 5 MG TABLET PO SCH (08:39)
[2017-02-16] MEDS: COMBIGAN OP SCH ×2 (08:40→22:29)
[2017-02-16] MEDS: RESTASIS OP SCH ×2 (08:40→22:29)
--- NOTE | 2017-02-16 13:25 | Internal Med Progress Note ---
Date of Encounter: 02/16/17 Time of Encounter: 13:24 - Assessment and plan (1) Acute delirium Current Visit: Yes Status: Acute Assessment and plan: Mutli factorial -- could be due to pain + and posisble UTI Does not look like dementia daughter denies any signs dementia at home UA - looks abnormal started on empirical ab Avoid Narcotic and BZD d/c Dilaudid.. No more Ativan If she gets real agitates will use Haldol at low dose 0.25mg PO Q BID PRN (2) Hypertensive urgency Current Visit: Yes Status: Acute Assessment and plan: Due to pain Cont Pain meds Improving cont PO BP meds Norvasc and Metoprolol Cont IV hydralazine PRN (3) Fracture of greater trochanter of right femur Current Visit: Yes Status: Acute Assessment and plan: Ortho on board Reviewed CT of Pelvis no acute surgical intervention recommended PT/OT pain control supportive care Qualifiers: Encounter type: initial encounter Fracture type: closed Fracture alignment: nondisplaced Qualified Code(s): S72.114A - Nondisplaced fracture of greater trochanter of right femur, initial encounter for closed fracture (4) Intractable pain Current Visit: Yes Status: Acute Assessment and plan: due to hip fracture (5) UTI (urinary tract infection) Current Visit: Yes Status: Acute Assessment and plan: UA looks abnormal started on empirical abx Rocephin also d/c avelar cath Qualifiers: Hematuria presence: without hematuria Qualified Code(s): N39.0 - Urinary tract infection, site not specified (6) Diabetes mellitus Current Visit: No Status: Chronic Assessment and plan: continue home dose of insulin sliding scale insulin algorithm as needed monitor FS and BG ADA diet Qualifiers: Diabetes mellitus type: type 2 Diabetes mellitus complication status: without complication Diabetes mellitus skilled nursing insulin use: with skilled nursing use Qualified Code(s): E11.9 - Type 2 diabetes mellitus without complications ; Z79.4 - [facility] (current) use of insulin; Z79.4 - [facility] (current) use of insulin; 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 Muniz is a 81 year old female past medical history of diabetes hyperlipidemia hypertension. Patient was seen at hospital yesterday and was diagnosed with a right greater trochanter fracture, nonsurgical at this time. She has been at home using Vicodin as prescribed however this was not controlling her pain and she has been unable to ambulate and perform daily ADLs or go to the bathroom, despite family providing 24-hour care as well. Pt was admitted here with intractable pain. Pt is more alert, awake and O x 3 today. Resting comfortably. Tolerating PO intake well. Denied any CP / SOB...Pt's daughter is at bed side. - Constitutional Vitals: Temp Pulse Resp BP Pulse Ox 98.7 F 73 16 148/67 98 02/16/17 10:47 02/16/17 10:47 02/16/17 10:47 02/16/17 10:47 02/16/17 10:47 General appearance: Present: A&O X 3, no acute distress (sleepy), underweight - Head Head exam: Present: atraumatic, normal inspection - Neck Neck exam general surgery: Present: supple - Respiratory Respiratory exam: Present: decreased breath sounds. Absent: rales, respiratory distress, rhonchi, wheezes - Cardiovascular Cardiovascular exam: Present: RRR, +S1, +S2. Absent: diastolic murmur, gallop, rubs, systolic murmur - GI/Abdominal GI/Abdominal exam: Present: normal bowel sounds, soft. Absent: rebound, rigid, tenderness - Extremities Exam Extremities exam: Present: tenderness (mild tenderness in Rt hip area). Absent : calf tenderness, pedal edema Additional comments: Improved ROM in Rt hip compare to y/d - Back Exam Back exam: Absent: CVA tenderness (L), CVA tenderness (R) - Neurological Exam Neurological exam: Present: alert, oriented X3 - Psychiatric Psychiatric exam: Present: normal affect, normal mood Internal Medicine: Result - Labs CBC & Chem 7: 02/15/17 05:29 02/15/17 05:29 Labs: Urine 02/16/17 Range/Units 04:10 Urine Color Dark Yellow (Yellow) Urine Clarity Turbid A (Clear) Urine pH 6.0 (5.0-8.0) pH Units Ur Specific [place] 1.028 H (1.010-1.025) Urine Protein 100 H (Neg-Trace) mg/dL Urine Glucose (UA) 100 H (Normal) mg/dL Consult Discharge Plan - Plan Referrals: Desean Levi MD [Primary Care Provider] - Arlene Whitley DO [Family Provider] - Lauri Eaton MD [Partnered Physician] - 02/21/17 10:40 am
[2017-02-16] MEDS: Insulin DETEMIR 100 UNIT/ML X5UNITS SQ SCH (21:09)
[2017-02-17] MEDS ORDERED: *HR* Morphine 2 MG/ML SYRINGE IVP ONE (01:15)
[2017-02-17 05:24] LABS: Basophils % 0.2 %; Eosinophils # 0.2 K/mcL (0.0-0.6); Eosinophils % 2.1 %; Hemoglobin 11.4 g/dL (11.5-15.4); Immature Granulocytes % 0.2 % (0-4); Lymphocytes # 2.1 K/mcL (0.6-4.6); Lymphocytes % 21.7 %; Mean Corpuscular HGB Conc 33.5 g/dL (31.6-35.5); Mean Corpuscular Hemoglobin 29.8 pg (28.0-33.3); Mean Platelet Volume 10.4 fL (9.4-12.4); Monocytes # 1.8 K/mcL (0.0-1.3); Monocytes % 18.1 %; Neutrophils # 5.6 K/mcL (1.6-8.9); Platelet Count 261 K/mcL (140-400); Red Blood Count 3.82 M/mcL (3.82-4.97); Red Cell Distribution Width 12.2 % (11.5-14.5); Segmented Neutrophils % 57.7 %
[2017-02-17 05:50] LABS: Platelet Estimate Normal (Normal)
[2017-02-17] MEDS: *HR* HYDROcodone/Acet 5/325 mg TABLET PO PRN ×2 (06:20→11:41)
[2017-02-17] MEDS: *HR* Enoxaparin 40 MG/0.4 ML SYRINGE SQ SCH (06:21)
[2017-02-17 07:14] VITALS: BP 128/71
[2017-02-17] MEDS: Insulin LISPRO 300 UNITS/3 ML VIAL SQ SCH ×2 (08:14→11:41)
[2017-02-17] MEDS: Aspirin Enteric Coated 81 MG Tablet PO SCH (08:15)
[2017-02-17] MEDS: amLODIPine 5 MG TABLET PO SCH (08:15)
[2017-02-17] MEDS: RESTASIS OP SCH (08:16)
[2017-02-17] MEDS: COMBIGAN OP SCH (08:16)
--- NOTE | 2017-02-17 11:53 | Discharge Summary ---
Date of Encounter: 02/17/17 Time of Encounter: 11:45 - Discharge Diagnosis (1) Acute delirium Priority: Primary Status: Acute (2) Hypertensive urgency Priority: Primary Status: Acute (3) Fracture of greater trochanter of right femur Priority: Primary Status: Acute Qualifiers: Encounter type: initial encounter Fracture type: closed Fracture alignment: nondisplaced Qualified Code(s): S72.114A - Nondisplaced fracture of greater trochanter of right femur, initial encounter for closed fracture (4) Intractable pain Priority: Secondary Status: Acute (5) UTI (urinary tract infection) Priority: Secondary Status: Acute Qualifiers: Hematuria presence: without hematuria Qualified Code(s): N39.0 - Urinary tract infection, site not specified (6) Diabetes mellitus Priority: Secondary Status: Chronic Qualifiers: Diabetes mellitus type: type 2 Diabetes mellitus complication status: without complication Diabetes mellitus half-way insulin use: with vp scientific use Qualified Code(s): E11.9 - Type 2 diabetes mellitus without complications ; 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; 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; 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; 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 - Discharge Medications Prescriptions: Cephalexin [Keflex] 500 mg PO TID #9 capsule HYDROcodone/Acet 5/325 mg [[place] 5-325 mg] 1 tab PO Q6H PRN #12 tab PRN Reason: Pain Home Medications: Aspirin [Lo-Dose Aspirin EC] 81 mg PO DAILY 02/13/17 [History] Brimonidine Tartrate/Timolol [Combigan 0.2%-0.5% Eye Drops] 1 drop BOTH EYES BID 02/13/17 [History] Cyclosporine [Restasis] 1 drop BOTH EYES BID 02/13/17 [History] Insulin Glargine,Hum.rec.anlog [Lantus Solostar] 21 unit SQ HS 02/13/17 [History ] Insulin LISPRO [Humalog] 4 unit SQ TIDWM 02/13/17 [History] Cephalexin [Keflex] 500 mg PO TID #9 capsule 02/17/17 [Rx] HYDROcodone/Acet 5/325 mg [[place] 5-325 mg] 1 tab PO Q6H PRN #12 tab 02/17/17 [Rx ] Lidocaine Patch [Lidoderm 5% patch] 1 each TP DAILY adh..patch 02/17/17 [Rx] Metoprolol [Lopressor] 25 mg PO BID tablet 02/17/17 [Rx] amLODIPine [Norvasc] 10 mg PO DAILY tablet 02/17/17 [Rx] Allergies/Adverse Reactions: 3 Allergy/AdvReac Type Severity Reaction Status Date / Time Sulfa (Sulfonamide AdvReac Gastrointestinal Verified 02/12/17 10:47 Antibiotics) Upset Date of admission: 02/14/17 16:19 Primary care physician: Desean Levi MD - Patient Status Disposition: Transfer SNF Condition: Good Overall status at discharge: patient is back to baseline - Discharge Instructions Follow Up With: Desean Levi MD [Primary Care Provider] - 02/23/17 2:00 pm Arlene Whitley DO [Family Provider] - Lauri Eaton MD [Partnered Physician] - 02/21/17 10:40 am - Diet and Activity Activity: as per physical therapy, increase activity as tolerated Diet: low salt diet Hospital course: Ms. Muniz is a 81 year old female past medical history of diabetes hyperlipidemia hypertension. Patient was seen at hospital yesterday and was diagnosed with a right greater trochanter fracture, nonsurgical at this time. She has been at home using Vicodin as prescribed however this was not controlling her pain and she has been unable to ambulate and perform daily ADLs or go to the bathroom, despite family providing 24-hour care as well. Pt was admitted here with intractable pain. Apparently pt was very agitated and combative on day 1 due to severe pain and questionable UTI. She does not tolerate well the narcotics. Her UA showed esterase positive and many bacteria present. So started on empirical abx Rocephin. Next her mentation got improved, she is more alert, awake and O x 3. She is also evaluated by ortho who recommend conservative management only. She did have uncontrolled BP, so I started her on Norvasc and Metoprolol , now her BP is stable and well controlled. Pt was seen by PT / OT who recommend ECF placement for short term PT / OT, so will d/c her to ECF today in stable condition. I did talk to ECF's nursing staff about pt's less tolerance for narcotics. Recommended to give her [place] if she absolutely needs it. - Time Spent with Patient Total time spent providing and/or coordinating discharge services: - Constitutional Vitals: Temp Pulse Resp BP Pulse Ox 98.1 F 71 16 128/71 96 02/17/17 07:13 02/17/17 07:13 02/17/17 07:13 02/17/17 07:13 02/17/17 07:13 General appearance: Present: A&O X 3, no acute distress, answers questions appropriately - Head Head exam: Present: atraumatic, normal inspection - Neck Neck exam general surgery: Present: supple - Respiratory Respiratory exam: Present: decreased breath sounds. Absent: rales, respiratory distress, rhonchi, wheezes - Cardiovascular Cardiovascular exam: Present: RRR, +S1, +S2. Absent: diastolic murmur, gallop, rubs, systolic murmur - GI/Abdominal GI/Abdominal exam: Present: normal bowel sounds, soft. Absent: rebound, rigid, tenderness - Extremities Exam Extremities exam: Absent: calf tenderness, pedal edema, tenderness - Back Exam Back exam: Absent: CVA tenderness (L), CVA tenderness (R) - Neurological Exam Neurological exam: Present: alert, oriented X3 - Psychiatric Psychiatric exam: Present: normal affect, normal mood
--- NOTE | 2017-02-17 11:56 | Physician Discharge Referral ---
ExtendedCare Referral Info Transfer To: [facility] Provider in Charge after Transfer: PCP Institutional Level of Care: Skilled - Diagnosis (1) Acute delirium Status: Acute (2) Hypertensive urgency Status: Acute (3) Fracture of greater trochanter of right femur Status: Acute (4) Intractable pain Status: Acute (5) UTI (urinary tract infection) Status: Acute (6) Diabetes mellitus Status: Chronic - Transfer Medications Prescriptions: Cephalexin [Keflex] 500 mg PO TID #9 capsule HYDROcodone/Acet 5/325 mg [[place] 5-325 mg] 1 tab PO Q6H PRN #12 tab PRN Reason: Pain Home Medications: Aspirin [Lo-Dose Aspirin EC] 81 mg PO DAILY 02/13/17 [History] Brimonidine Tartrate/Timolol [Combigan 0.2%-0.5% Eye Drops] 1 drop BOTH EYES BID 02/13/17 [History] Cyclosporine [Restasis] 1 drop BOTH EYES BID 02/13/17 [History] Insulin Glargine,Hum.rec.anlog [Lantus Solostar] 21 unit SQ HS 02/13/17 [History ] Insulin LISPRO [Humalog] 4 unit SQ TIDWM 02/13/17 [History] Cephalexin [Keflex] 500 mg PO TID #9 capsule 02/17/17 [Rx] HYDROcodone/Acet 5/325 mg [[place] 5-325 mg] 1 tab PO Q6H PRN #12 tab 02/17/17 [Rx ] Lidocaine Patch [Lidoderm 5% patch] 1 each TP DAILY adh..patch 02/17/17 [Rx] Metoprolol [Lopressor] 25 mg PO BID tablet 02/17/17 [Rx] amLODIPine [Norvasc] 10 mg PO DAILY tablet 02/17/17 [Rx] Allergies/Adverse Reactions: 3 Allergy/AdvReac Type Severity Reaction Status Date / Time Sulfa (Sulfonamide AdvReac Gastrointestinal Verified 02/12/17 10:47 Antibiotics) Upset - Respiratory Orders Smoking Cessation: Smoking cessation has been advised. For more information, call the [place] Tobacco Quit Line at 6-934-DHON-NOW. CERTIFICATION: I certify that the transfer of the above named patient to an Extended Care Facility is necessary for the continuing treatment of the diagnosis listed. The above information is true and accurate reflection of patient's current condition. Confidential - Redisclosure prohibited without a patient's written consent.
== END 2017-02-17 13:31 | DRG 560 ==
LOC: 3NENU 13:14 → EMEROO 13:14 → 3NENU 15:44 → SUATTDRO 02-14 16:19
PROVIDERS: ADMIT Nurse Practitioner Acute Care; ATTEND Family Medicine